=== PATIENT | male | born 1990 | race Caucasian/White ===

== ENCOUNTER 2018-01-23 03:59 | Emergency (ER) | payer SELFPAY ==
[2018-01-23 04:20] VITALS: TEMP 97.4; O2SAT 99
--- NOTE | 2018-01-23 05:08 | C.PDOC ---
History Of Present Illness Pt presents to ER with c/o of pain to lower back and b/l legs s/p slipped on 4- 5 steps and fell on rear, and scraped legs on side of stairs. He denies head injury, leg weakness or numbness, incontinence. - HPI Time Seen by Provider: 01/23/18 04:51 Chief Complaint (Nursing): Trauma History Per: Patient History/Exam Limitations: no limitations Onset/Duration Of Symptoms: Sudden Onset ([employer]) Location Of Injury: Right: Leg, Left: Leg, Anterior: Leg, Posterior: Back, Buttock Severity: Mild Past Medical History Vital Signs: Last Vital Signs Temp 97.4 F L 01/23/18 04:14 Pulse 94 H 01/23/18 04:14 Resp 14 01/23/18 04:14 BP 100/60 01/23/18 04:14 Pulse Ox 99 01/23/18 05:19 - Medical History PMH: No Chronic Diseases Family History: States: Unknown Family Hx - Social History Hx Alcohol Use: No Hx Substance Use: No - Immunization History Hx Tetanus Toxoid Vaccination: No Hx Influenza Vaccination: Yes Hx Pneumococcal Vaccination: No Review Of Systems Constitutional: Negative for: Fever Musculoskeletal: Positive for: Back Pain Skin: Positive for: Bruising, Other (abrasions) Neurological: Negative for: Weakness, Numbness, Headache Physical Exam - Physical Exam Appears: Well, No Acute Distress Skin: Other (abrasions Rt knee , med rt ankle, Lt lower leg) Head: Atraumatic Eye(s): bilateral: Normal Inspection, PERRL Gastrointestinal/Abdominal: Normal Exam Back: Normal Inspection, No CVA Tenderness, No Vertebral Tenderness, Other ( minimal tenderness at coccygeal area) Extremity: Normal ROM, No Tenderness, No Deformity, No Swelling Pulses: Left Dorsalis Pedis: Normal, Right Dorsalis Pedis: Normal Neurological/Psych: Oriented x3, Normal Motor, Normal Sensation Gait: Steady ED Course And Treatment O2 Sat by Pulse Oximetry: 99 Pulse Ox Interpretation: Normal Progress Note: Pt is fully ambulatory in ED , took advil [employer] Disposition - Disposition Referrals: [facility] [Outside] Disposition: HOME/ ROUTINE Disposition Time: 05:18 Condition: STABLE Additional Instructions: Continue advil for pain Apply bacitracin oint to abrasions Return To ER if worse Instructions: Skin Abrasions (DC), Contusion (DC) Forms: Xfire (Setswana) - Clinical Impression Clinical Impression: Contusion, back, Abrasion of multiple sites of lower extremity
[2018-01-23] MEDS ORDERED: Bacitracin 500 Units/gm Oint Foilpak UD ONE (05:35)
[2018-01-23 05:49] VITALS: BP 111/76; PULSE 64; RESP 17
== END 2018-01-23 05:53 | disposition home or self-care (01) ==
LOC: C.ER 03:59
DX: S30.0XXA Contusion of lower back and pelvis, initial encounter (principal); S80.211A Abrasion, right knee, initial encounter; S90.511A Abrasion, right ankle, initial encounter; S80.812A Abrasion, left lower leg, initial encounter; W01.0XXA Fall on same level from slipping, tripping and stumbling without subsequent striking against object, initial encounter